=== PATIENT | male | born 1975 | race Caucasian/White ===

== ENCOUNTER 2017-09-22 07:45 | Emergency (ER) | payer MEDICAID ==
[~2017-09-22] VITALS: Ht 190.5 cm; Wt 119.7 kg
[~2017-09-22 07:45] MED LIST: IBUP-1986 PO
[2017-09-22 07:51] VITALS: BP 154/88
[2017-09-22] MEDS ORDERED: PENI500T2 PO (08:15)
[2017-09-22] MEDS ORDERED: HYDR-565 PO (08:15)
[2017-09-22] MEDS ORDERED: HYDROcodone/acetaminophen 10/325mg tab PO ONE (08:20)
[2017-09-22] MEDS ORDERED: penicillin V potassium 500mg tablet PO ONE (08:20)
== END 2017-09-22 08:35 | disposition home or self-care (01) ==
LOC: ER 07:45
DX: K04.7 Periapical abscess without sinus (principal); Z79.899 Other long term (current) drug therapy
CPT/HCPCS: 99283